=== PATIENT | female | born 1935 | race Hispanic/Latino ===

== ENCOUNTER 2018-11-25 10:12 | Outpatient (CLI) | payer MEDICARE ==
--- NOTE | 2018-11-25 10:45 | XRay Report ---
CHEST 2 VIEWS INDICATION: THROMBOCYTOPENIA. Nonproductive cough for 6 months COMPARISON: None FINDINGS: Support devices: None. Heart: Within normal limits. Lungs/pleura: The lungs are hyperinflated suggesting underlying emphysema. No evidence for nodule, ma ss or effusion. No pneumothorax. Additional findings: The bony structures are demineralized. No obvious bone lesion or acute fracture. IMPRESSION: COPD findings. Osteopenia. No acute cardiopulmonary process. Signer Name: Tito Claros Jr, MD Signed: 11/25/2018 10:41 AM Workstation Name: [id number]
== END 2018-11-25 10:13 | disposition home or self-care (01) ==
LOC: SPVIMAG 10:12
PROVIDERS: ATTEND Internal Medicine Hematology & Oncology
DX: J44.9 Chronic obstructive pulmonary disease, unspecified (principal); M85.88 Other specified disorders of bone density and structure, other site
CPT/HCPCS: 71046